=== PATIENT | female | born 1995 | race Caucasian/White ===

== ENCOUNTER 2020-08-03 20:02 | Emergency (ER) | payer OTHER ==
[~2020-08-03 20:02] MED LIST: OMNICEF 300 MG300 MG PO; PROZAC20 MG PO
== END 2020-08-04 00:11 | disposition home or self-care (01) ==
LOC: ER1 20:02
DX: J02.9 Acute pharyngitis, unspecified (principal); R09.89 Other specified symptoms and signs involving the circulatory and respiratory systems; Z20.822 Contact with and (suspected) exposure to COVID-19
CPT/HCPCS: 87081; 87880; 99284; U0003

== ENCOUNTER → 2020-10-19 | Outpatient (CLI) | payer OTHER | LOC: KOH-I 11:00 | DX: R10.9 Unspecified abdominal pain (principal); K76.0 Fatty (change of) liver, not elsewhere classified | CPT/HCPCS: 76700 ==

== ENCOUNTER 2021-12-22 22:51 | Emergency (ER) | payer OTHER ==
[2021-12-23 02:17] LABS: HEMOGLOBIN 11.2 gm/dl (12.3-15.3); RED BLOOD COUNT 3.77 M/UL (4.00-5.10); WHITE BLOOD COUNT 15.5 K/UL (4.5-11.0)
[2021-12-23 02:43] LABS: BUN/CREATININE RATIO 15 (0-10)
[2021-12-23] MEDS ORDERED: OMNICEF 300 MG300 MG PO (04:27)
== END 2021-12-23 04:50 | disposition home or self-care (01) ==
LOC: ER1 22:51
PROVIDERS: Student in an Organized Health Care Education/Training Program
DX: N39.0 Urinary tract infection, site not specified (principal); Z20.822 Contact with and (suspected) exposure to COVID-19
CPT/HCPCS: 0240U; 71045; 80053; 81001; 83605; 84703; 85025; 85652; 86140; 87040; 87086; 96374; 99283; J0696